=== PATIENT | male | born 1985 | race Caucasian/White ===

== ENCOUNTER 2020-06-01 20:06 | Emergency (ER) | payer OTHER, SELFPAY ==
--- NOTE | 2020-06-01 21:42 | RAD ---
LEFT FOOT THREE VIEWS: 06/01/20 No fracture or periosteal reaction was seen. The joints showed no acute change. At most, there may be an avulsion of a alex of cortex from the dorsum of the navicular, but this is not even necessarily new. Certainly no major fracture is present. A small calcaneal spur was seen. IMPRESSION: No significant acute findings. See above. POS: HOME
== END 2020-06-01 21:15 | disposition home or self-care (01) ==
LOC: BURERS 20:06
DX: S93.602A Unspecified sprain of left foot, initial encounter (principal); S96.912A Strain of unspecified muscle and tendon at ankle and foot level, left foot, initial encounter; I10 Essential (primary) hypertension; Z79.899 Other long term (current) drug therapy; X50.1XXA Overexertion from prolonged static or awkward postures, initial encounter

== ENCOUNTER 2023-01-29 12:03 | Emergency (ER) | payer OTHER, SELFPAY ==
[2023-01-29] MEDS ORDERED: Hydrochlorothiazide 25 MG TAB ONE (14:10)
== END 2023-01-29 13:44 | disposition home or self-care (01) ==
LOC: BURERS 12:03
DX: K42.9 Umbilical hernia without obstruction or gangrene (principal); I10 Essential (primary) hypertension
CPT/HCPCS: 99283

== ENCOUNTER 2024-04-10 14:57 | Emergency (ER) | payer OTHER ==
[2024-04-10] MEDS ORDERED: Sodium Chloride 0.9% 100 ML ONE ×2 (15:15→15:20)
[2024-04-10] MEDS ORDERED: cefTRIAXone (ROCEPHIN) 1 GM VIAL ONE (15:16)
[2024-04-10 15:18] LABS: Hematocrit 46.4 % (42.0-52.0); Hemoglobin 16.6 g/dL (14.0-18.0); Mean Corpuscular HGB CONC 35.9 g/dL (32.0-36.0); Mean Corpuscular Hemoglobin 30.3 pg (27.0-31.0); Mean Corpuscular Volume 84.6 fl (78.0-98.0); Mean Platelet Volume 8.2 fL (7.4-10.4); Platelet Count 194 10x3/uL (130-400); RBC Distribution Width 10.3 % (11.5-14.5); Red Blood Cell (RBC) Count 5.49 mill/uL (4.70-6.10); White Blood Cell (WBC) Count 11.2 10x3/uL (4.8-10.8)
[2024-04-10] MEDS ORDERED: Azithromycin 500 MG VIAL ONE (15:20)
[2024-04-10 15:29] LABS: Anion Gap 18 mmol/L (10-20); BUN (Urea Nitrogen) 7 mg/dL (8.9-20.6); Calc. Creatinine Clearance 0 mL/min (70-130); Calcium 10.1 mg/dL (7.8-10.44); Carbon Dioxide 19 mmol/L (22-29); Chloride 103 mmol/L (98-107); Estimated GFR 86; Glucose 142 mg/dL (70-105); Potassium 3.7 mmol/L (3.5-5.1); Sodium 136 mmol/L (136-145)
[2024-04-10 15:33] LABS: Band 3 % (5-11); Lymphocytes 8 % (21-51); MDiff Complete? YES; Monocytes 7 % (0-10); Neutrophil 80 % (42-75); Platelet Adequacy Comment Appears Adequate
[2024-04-10 15:44] LABS: SARS-CoV-2 E Target Negative; SARS-CoV-2 N2 Target Negative; SARS-CoV-2 NAA Rapid Test Not Detected (NotDetected); SARS-CoV-2 RdRP gene Negative
== END 2024-04-10 15:59 | disposition home or self-care (01) ==
LOC: BURERS 14:57
DX: J18.9 Pneumonia, unspecified organism (principal); I10 Essential (primary) hypertension; Z79.899 Other long term (current) drug therapy
CPT/HCPCS: 71046; 80048; 85025; 85379; 87804; 96365; 96375; J0456; J0696; U0002

== ENCOUNTER 2024-04-13 11:12 | Emergency (ER) | payer OTHER ==
[~2024-04-13 11:12] MED LIST: Iopamidol 370 76% 100 ML VIAL ONE
[2024-04-13] MEDS ORDERED: Ketorolac Tromethamine 30 MG (1 mL) VIAL ONE (11:43)
[2024-04-13] MEDS ORDERED: cefTRIAXone (ROCEPHIN) 1 GM VIAL ONE (11:44)
[2024-04-13] MEDS ORDERED: Sodium Chloride 0.9% 100 ML ONE (11:44)
[2024-04-13 11:58] LABS: #Basophils 0.1 thou/uL (0.0-0.2); #Monocytes 0.8 thou/uL (0.11-0.59); #Neutrophils 7.6 thou/uL (1.40-6.50); %Basophils 0.9 % (0.0-1.0); %Eosinophils 0.3 % (0.0-10.0); %Lymphocytes 10.9 % (21.0-51.0); %Monocytes 8.3 % (0.0-10.0); %Neutrophils 79.5 % (42.0-75.0); Hematocrit 44.6 % (42.0-52.0); Hemoglobin 15.4 g/dL (14.0-18.0); Mean Corpuscular HGB CONC 34.6 g/dL (32.0-36.0); Mean Corpuscular Hemoglobin 29.8 pg (27.0-31.0); Mean Platelet Volume 7.4 fL (7.4-10.4); Platelet Count 209 10x3/uL (130-400); RBC Distribution Width 10.7 % (11.5-14.5); Red Blood Cell (RBC) Count 5.18 mill/uL (4.70-6.10); White Blood Cell (WBC) Count 9.5 10x3/uL (4.8-10.8)
[2024-04-13 12:17] LABS: ALT (SGPT) 54 U/L (8-55); AST (SGOT) 19 U/L (5-34); Albumin 3.1 g/dL (3.5-5.0); Alkaline Phosphatase 147 U/L (40-110); Anion Gap 17 mmol/L (10-20); BUN (Urea Nitrogen) 10 mg/dL (8.9-20.6); Bilirubin, Total 1.6 mg/dL (0.2-1.2); Calc. Creatinine Clearance 0 mL/min (70-130); Calcium 9.9 mg/dL (7.8-10.44); Carbon Dioxide 23 mmol/L (22-29); Chloride 101 mmol/L (98-107); Estimated GFR 77; Globulin 4.5 g/dL (2.4-3.5); Glucose 89 mg/dL (70-105); Potassium 4.1 mmol/L (3.5-5.1); Protein, Total 7.6 g/dL (6.0-8.3); Sodium 137 mmol/L (136-145)
[2024-04-13 13:54] LABS: PTT 34.2 sec (22.9-36.1)
[2024-04-13] MEDS ORDERED: Enoxaparin 30 MG (0.3 mL) SYRINGE ONE (14:02)
== END 2024-04-13 15:42 | disposition short-term general hospital (02) ==
LOC: BURERS 11:12
DX: J18.9 Pneumonia, unspecified organism (principal); I26.99 Other pulmonary embolism without acute cor pulmonale; I10 Essential (primary) hypertension; Z55.6 Problems related to health literacy
CPT/HCPCS: 36415; 71046; 71275; 80053; 83605; 83880; 84484; 85025; 85379; 85610; 85730; 87040; 93005; 96365; 96372; 96375; J0696; J1650; J1885; Q9967